=== PATIENT | female | born 1965 | race Caucasian/White ===

== ENCOUNTER → 2020-09-05 10:50 | Outpatient (CLI) | payer BC, SELFPAY ==
--- NOTE | ~2020-09-05 | MM_ITS ---
EXAMINATION: MM screening niurka BI w john HISTORY: Screening mammogram TECHNIQUE: Craniocaudal and mediolateral oblique 3-D tomosynthesis images were obtained and synthetic 2-D images were generated. CAD analysis was submitted and interpreted. COMPARISON: 03/21/2019 bilateral digital screening mammogram 01/04/2018 diagnostic left digital mammogram and limited left breast ultrasound 12/30/2017 bilateral digital screening mammogram BREAST PARENCHYMAL COMPOSITION: There are scattered areas of fibroglandular density. FINDINGS: 10 mm circumscribed mass situated anteriorly at the lower inner left breast; diagnostic left mammogra m is recommended, with ultrasound if required. Otherwise there no evidence of suspicious mass, calcification, or architectural distortion to suggest malignancy in either breast. There has been no other suspicious interval change. IMPRESSION: 1. 1 cm circumscribed mass at anterior aspect of lower inner left breast 2. Diagnostic left mammogram is recommended, with ultrasound if required BI-RADS Category 0: Incomplete: Needs additional imaging evaluation. Reviewed, dictated and finalized at location A. MBOAT PILOT
== END ==
PROVIDERS: Visit Provider Nurse Practitioner Obstetrics & Gynecology
DX: Z12.31 Encounter for screening mammogram for malignant neoplasm of breast (principal); R92.8 Other abnormal and inconclusive findings on diagnostic imaging of breast
CPT/HCPCS: 77063; 77067

== ENCOUNTER → 2020-09-30 07:44 | Outpatient (CLI) | payer BC, SELFPAY ==
--- NOTE | ~2020-09-30 | MMUS_ITS ---
EXAMINATION: MM diagnostic mammo unilat LT, US breast LT limited HISTORY: 10 mm circumscribed mass in anterior lower inner left breast reported on 09/05/2020 screenin g mammogram TECHNIQUE: Additional 3-D tomosynthesis images of the left breast were performed and synthetic 2-D im ages were generated. CAD analysis was submitted and interpreted. High resolution targeted left breast ultrasound was performed. COMPARISON: 09/05/2020 bilateral digital screening mammogram FINDINGS: MAMMOGRAPHIC FINDINGS: A superficial circumscribed low-density approximately 6 x 10 mm opacity is confirmed in the medial le ft subareolar area. ULTRASOUND: 9:00 subareolar 6 x 12 x 9 mm sonolucency with through transmission posterior enhancement, consistent with cyst. There is a nearby 2 x 2.5 mm cyst. No suspicious solid lesion or shadowing is evident. IMPRESSION: 1. Benign subareolar cysts at 9:00; no evidence of malignancy 2. Routine mammographic screening is recommended. BI-RADS Category 2: Benign finding(s). Reviewed, dictated and finalized at location A. ERY MENDER IMPRESSION: 1. Benign subareolar cysts at 9:00; no evidence of malignancy 2. Routine mammographic screening is recommended. BI-RADS Category 2: Benign finding(s).
== END ==
PROVIDERS: Visit Provider Nurse Practitioner Obstetrics & Gynecology
DX: R92.8 Other abnormal and inconclusive findings on diagnostic imaging of breast (principal)
CPT/HCPCS: 76642; 77065

== ENCOUNTER 2021-06-24 02:39 | Day surgery (SDC) | payer BC, SELFPAY ==
[2021-06-11 13:06] VITALS: BMI 27.4
--- NOTE | 2021-06-23 19:16 | PM.HPGS ---
History of Present Illness History of Present Illness Consent: Risks, benefits, and alternatives have been discussed and questions answered. Patient agrees to proceed with procedure. Chief complaint: neoplasm, hx of colon polyps Narrative: Amanda Marcos is a 55 year old female referred for colon cancer screening. She had a polyp removed about 5 years ago Review of Systems Review of Systems: All systems reviewed & are unremarkable except as noted in HPI and below PMFSH Surgical History Surgical History History of cholecystectomy Social History Social History Smoking status: Never smoker Alcohol intake: current Drinks per week: 1 Substance use: never Substance use type: does not use Living arrangements: alone Gender identity (if verbalized by the patient): Female Spiritual care concerns: No Meds Home Medications and Allergies Home Medications Medication Instructions Recorded Confirmed Type No Home Medications 06/11/21 06/24/21 History Allergies Allergy/AdvReac Type Severity Reaction Status Date / Time No Known Allergies Allergy Verified 06/24/21 09:08 Exam Resp: Auscultation: clear to auscultation bilaterally Cardio: Rate: regular rate Rhythm: regular rhythm GI: GI Palp: Yes Soft to palpation and No Tenderness to palpation present (GI) Assessment and Plan Assessment and plan (1) Colon cancer screening: Code(s): Z12.11 - Encounter for screening for malignant neoplasm of colon Status: Acute Assessment and Plan: Colonoscopy with possible biopsy or polypectomy or cautery or injection of substances.
--- NOTE | 2021-06-24 08:00 | P.PNAN_ITS ---
Anes - Initial Pre Proc Eval Procedure: Operation Date: 06/24/21 10:30 Proposed Procedures p Screening Colonoscopy - Grabiel Campos MD Date/Time: 06/24/21 08:00 Surgeon: Grabiel Campos MD Pre Op Diagnosis: neoplasm, hx of colon polyps Patient Data Age: 55 Gender: F Height: 1.7 m Weight: 79.5 kg Allergies Allergy/AdvReac Type Severity Reaction Status Date / Time No Known Allergies Allergy Verified 06/24/21 09:08 Home Medications Medication Instructions Recorded Confirmed Type No Home Medications 06/11/21 06/24/21 History Patient hx anesthesia problems: none Family hx anesthesia problems: none [facility] Surgical History Surgical History (Updated 06/24/21 @ 08:00 by Primo Gamboa DO) History of cholecystectomy Social History Social History Smoking status: Never smoker Alcohol intake: current Drinks per week: 1 Substance use: never Substance use type: does not use Living arrangements: alone Gender identity (if verbalized by the patient): Female Spiritual care concerns: No Anes - Eval Final PreProcedure Day of Procedure 06/24/21 08:00 Patient weight: overweight Heart: regular rate and rhythm Lungs: clear to auscultation and normal air movement Airway: Mallampati scale class II Neurological: alert and oriented Last oral intake: >/= 8 hours ASA classification: I Emergent: no Anesthetic plan: proceed Anesthesia type and monitoring: general GIVS and standard monitoring Informed Consent: The patient's anesthetic plan and its attendant risks and benefits were discussed with the patient/family/POA. Questions were solicited and answers provided to the satisfaction of the patient/family/POA.
[2021-06-24 09:09] VITALS: BP 137/87; PULSE 81; RESP 16; TEMP 36.4; O2SAT 100
[2021-06-24] MEDS: LACTATED RINGERS 1,000 ML 150 ML IV CONT (09:11)
[2021-06-24] MEDS: SIMETHICONE ORAL SUSPENSION 20 MG/0.3 ML 30 ML BOTTLE 0.6 ML IRRIGATION (09:52)
[2021-06-24 10:09] VITALS: BP 108/67; PULSE 68; RESP 18; O2SAT 100
[2021-06-24 10:19] VITALS: BP 118/77; PULSE 60; RESP 18; O2SAT 96
[2021-06-24 10:29] VITALS: BP 126/77; PULSE 58; RESP 18; O2SAT 100
== END 2021-06-24 10:38 | disposition home or self-care (01) ==
PROVIDERS: Visit Provider Internal Medicine Gastroenterology
PROC: 0DJD8ZZ Inspection of Lower Intestinal Tract, Via Natural or Artificial Opening Endoscopic (ICD-10-PCS; CPT 45378; principal; 2021-06-24 10:30)
DX: Z12.11 Encounter for screening for malignant neoplasm of colon (principal); D12.2 Benign neoplasm of ascending colon; K63.5 Polyp of colon
CPT/HCPCS: 45385; 88305; J2704; J7120

== ENCOUNTER → 2021-12-29 14:33 | Outpatient (CLI) | payer BC, SELFPAY ==
--- NOTE | ~2021-12-29 | MMUS_ITS ---
EXAMINATION: MM screening niurka BI w john, US breast LT limited HISTORY: Screening mammogram TECHNIQUE: Craniocaudal and mediolateral oblique 3-D tomosynthesis images were obtained and synthetic 2-D images were generated. CAD analysis was submitted and interpreted. COMPARISON: 09/30/2020 diagnostic left mammogram and left Limited breast ultrasound BREAST PARENCHYMAL COMPOSITION: There are scattered areas of fibroglandular density. BILATERAL SCREENING MAMMOGRAM FINDINGS: Interval considerably diminished size of previously reported 6 x 10 mm mammographic opacity in the medial inferior subareolar area since 09/30/2020. In the same l ocation there is an approximately 3.5 x 5.3 mm small density. Otherwise there is no evidence of suspicious mass, calcification, or architectural distortion to suggest malignancy i n either breast. There has been no other suspicious interval change. LIMITED LEFT BREAST ULTRASOUND FINDINGS: Subareolar area, 9:00: There is a circumscribed mildly irregular hypoechoic approximately 3.5 x 5 x 6 mm solid lesion with suggestion of a fatty hilus, possibly a small lymph node. There is no suspiciou s shadowing or suspicious internal vascularity. 6 month right mesenteric left mammogram and targeted subareolar left breast ultrasound examination is recommended. IMPRESSION: 1. Circumscribed hypoechoic 3.5 x 5 x 6 mm solid lesion with fatty hilus, possibly a small lymph node , in subareolar area at 9:00. 2. 6 month diagnostic left mammogram and targeted left breast ultrasound follow-up are recommended BI-RADS Category 3: Probably benign findings Reviewed, dictated and finalized at location A. IMPRESSION: 1. Circumscribed hypoechoic 3.5 x 5 x 6 mm solid lesion with fatty hilus, possi kim a small lymph node, in subareolar area at 9:00. 2. 6 month diagnostic left mammogram and targeted left breast ultrasound follow -up are recommended BI-RADS Category 3: Probably benign findings
== END ==
PROVIDERS: Visit Provider Nurse Practitioner Obstetrics & Gynecology
DX: Z12.31 Encounter for screening mammogram for malignant neoplasm of breast (principal); N60.02 Solitary cyst of left breast; R92.8 Other abnormal and inconclusive findings on diagnostic imaging of breast
CPT/HCPCS: 76642; 77063; 77067

== ENCOUNTER → 2022-01-26 13:12 | Outpatient (CLI) | payer BC, SELFPAY ==
--- NOTE | ~2022-01-26 | DEXA_ITS ---
Bone Density Report Name: ARLETTE OBRIEN Age: 56 Sex: Female Ethnicity: White Date of : 1965 Indication: postmenopausal; screening for osteoporosis; Referring Provider: Markel, Chiquita Messina Study: Bone densitometry was performed. Exam Date: January 26, 2022 Accession number: [id number] Bone Density: Region BMD T-score Z-score Classification AP Spine (L1-L4) 0.951 -0.9 0.3 Normal Femoral Neck (Left) 0.881 0.3 1.4 Normal Total Hip (Left) 1.009 0.5 1.3 Normal Femoral Neck (Right) 0.866 0.2 1.3 Normal Total Hip (Right) 0.996 0.4 1.2 Normal Total Hip Mean 1.003 0.5 1.3 Normal World Health Organization criteria for BMD impression classify patients as: Normal (T-score at or above -1.0), Osteopenia (T-score between -1.0 and -2.5), or Osteoporosis (T-score at or below -2.5). 10-year Fracture Risk: FRAX not reported because: All T-scores for Spine Total, Hip Total, Femoral Neck at or above -1.0 Clinical Information Provided by Patient: Patient maximum height was 67 Menopause Age: 50 Does not regularly consume dairy products Onset of menses at age 13 Number of children 0 Impression: The patient has normal bone mass. Discussion: BONE DENSITY IS ABOVE THE MINIMUM DESIRABLE LEVEL AT ALL SKELETAL SITES TESTED. This patient?s bone mineral density is above the minimum desirable level (T-score -1.0 or better) at all sites measured. The patient should follow a healthful lifestyle (good nutrition with adequate calcium and vitamin D, and appropriate weight-bearing exercise). Follow-Up: Consider repeating this study in 5 years or sooner if there is some new clinical indication. Reported by: BRIDGET on 01/26/2022 1:51:00 PM. Reviewed, dictated and finalized at location [facility]
== END ==
PROVIDERS: PCP Nurse Practitioner Obstetrics & Gynecology; Visit Provider Nurse Practitioner Obstetrics & Gynecology
DX: Z78.0 Asymptomatic menopausal state (principal)
CPT/HCPCS: 77080

== ENCOUNTER → 2022-07-05 08:07 | Outpatient (CLI) | payer BC, SELFPAY ==
--- NOTE | ~2022-07-05 | MMUS_ITS ---
EXAMINATION: MM diagnostic niurka LT w ojhn, US breast LT limited HISTORY: Six-month follow-up of abnormal mammogram TECHNIQUE: ML, MLO and CC 3-D tomosynthesis images of the left breast were performed and synthetic 2- D images were generated. CAD analysis was submitted and interpreted. High resolution targeted left 9: 00 breast ultrasound was performed. COMPARISON: 12/29/2021 bilateral screening mammogram and limited left breast ultrasound BREAST PARENCHYMAL COMPOSITION: There are scattered areas of fibroglandular density. FINDINGS: MAMMOGRAPHIC FINDINGS: No suspicious mass or architectural distortion, malignant calcification, skin thickening or retractio n or significant new or developing density is detected. ULTRASOUND: No suspicious mass or shadowing or other significant abnormality is identified in the 9:00 subareolar area. IMPRESSION: 1. No mammographic or sonographic evidence of malignancy 2. Routine mammographic screening is recommended. BI-RADS Category 1: Negative Reviewed, dictated and finalized at location A. IMPRESSION: 1. No mammographic or sonographic evidence of malignancy 2. Routine mammographic screening is recommended. BI-RADS Category 1: Negative
== END ==
PROVIDERS: PCP Nurse Practitioner Obstetrics & Gynecology; Visit Provider Nurse Practitioner Obstetrics & Gynecology
DX: R92.8 Other abnormal and inconclusive findings on diagnostic imaging of breast (principal)
CPT/HCPCS: 76642; 77061; 77065; G0279

== ENCOUNTER 2023-04-21 09:36 | Emergency (ER) | payer BC, SELFPAY ==
--- NOTE | ~2023-04-21 | XR_ITS ---
EXAMINATION: XR ankle LT min 3V DATE: 04/21/2023 10:05 INDICATION: Left ankle pain TECHNIQUE: Anteroposterior, lateral, mortise, and additional oblique view of the ankle were obtained. COMPARISON: None. FINDINGS: Bone alignment is normal. There is no fracture. There is mild soft tissue swelling of the d orsal foot. A plantar calcaneal enthesophyte is noted. Mild osteoarthritis is noted in the midfoot. IMPRESSION: 1. No acute osseous abnormality. Reviewed, dictated and finalized at location L.
--- NOTE | ~2023-04-21 | XR_ITS ---
EXAMINATION: XR foot LT min 3V DATE: 04/21/2023 10:06 INDICATION: Left foot pain TECHNIQUE: Dorsoplantar, lateral, and 2 oblique views of the left foot were obtained. COMPARISON: None. FINDINGS: There is dorsal soft tissue swelling of the foot overlying the metatarsals. There appear to be subtle areas of heterotopic ossification lateral to the base of the second metatarsal. Bone align ment is normal. There is mild osteoarthritis of multiple interphalangeal joints. IMPRESSION: 1. Possible fracture at the base of the second metatarsal. Consider further evaluation with CT. Reviewed, dictated and finalized at location L. IMPRESSION: 1. Possible fracture at the base of the second metatarsal. Consider further lulú luation with CT.
--- NOTE | ~2023-04-21 | CT_ITS ---
EXAMINATION: CT foot LT wo con DATE: 04/21/2023 10:48 INDICATION: Dorsal left foot pain, swelling and bruising post injury TECHNIQUE: High resolution computed tomography (CT) of the foot was performed without intravenous con trast. Additional sagittal and coronal reconstructions were performed. Automated exposure control and iterative reconstruction technique were employed. The dose-length product was 285.80 mGy-cm. COMPARISON: Radiograph dated 04/21/2023 FINDINGS: Negligible displacement of intra-articular fractures at the medial bases of the third and fourth meta tarsals. Additional tiny likely avulsion fracture fragments along the dorsal/medial cortices of the b ase of the third metatarsal and along the lateral margin of the base of the second metatarsal. Minima l impaction of a fracture at the distal margin of the medial cuneiform with one-2 mm depression of th e plantar/lateral aspect of the distal articular surface. No other fractures identified. Alignment re moe near-anatomic. Minimal polyarticular osteoarthritis. There is subarticular cystic change at the head of the second metatarsal which could represent sequela of chronic osteonecrosis. Soft tissues s welling over the dorsum of the mid and forefoot. IMPRESSION: 1. Non to minimally displaced fractures at the base of the second-fourth metatarsals and at the media l cuneiform. Reviewed, dictated and finalized at location A. IMPRESSION: 1. Non to minimally displaced fractures at the base of the second-fourth metata rsals and at the medial cuneiform.
[2023-04-21 09:36] VITALS: BP 141/76; PULSE 102; RESP 18; TEMP 37.3; O2SAT 98
[2023-04-21] MEDS: IBUPROFEN 600 MG TABLET PO (09:56)
--- NOTE | 2023-04-21 11:07 | ED.LOWEXIN ---
HPI - Extremity Injury (Lower) General Chief Complaint: Extremity Injury, Lower Stated Complaint: left foot injury; pain Time Seen by Provider: 04/21/23 09:44 Source: patient Mode of arrival: ambulatory Limitations: no limitations History of Present Illness HPI Narrative: this is 57-year-old female that presents with left foot pain with weight-bearing and swelling has some limited range of motion secondary to pain and swelling this occurred yesterday after she was on a treadmill and inadvertently missed staffed on to her left anterior foot causing pain and discomfort. MD complaint: foot injury Injury: Right: foot ( Painful and swelling) Type of Injury: blunt Place: other Severity: mild Severity scale (1-10): 2 Relieving factors: cold therapy Exacerbating factors: weight bearing Related Data Home Medications Medication Instructions Recorded Confirmed No Home Medications 06/11/21 04/21/23 Allergies Allergy/AdvReac Type Severity Reaction Status Date / Time No Known Allergies Allergy Verified 04/21/23 09:49 Review of Systems Review of Systems: All systems reviewed & are unremarkable except as noted in HPI and below PMFSH Past Medical History Medical History Patient denies medical problems Surgical History Surgical History History of cholecystectomy Social History Social History Smoking status: Never smoker Alcohol intake: current Drinks per week: 1 Substance use: never Substance use type: does not use Living arrangements: alone Gender identity (if verbalized by the patient): Female Spiritual care concerns: No Exam Const: General: healthy appearing Nutritional Appearance: well nourished Orientation/consciousness: patient oriented x3 Limitations: no limitations Resp: Effort & Inspection: normal respiratory effort Auscultation: clear to auscultation bilaterally GI: GI Palp: Yes Soft to palpation Urinary Catheter: Urinary Catheter: patent and draining Skin: General skin exam: normal color Rashes: no rashes Neuro: General: patient oriented x3 Extrem: General: edema Other: anterior left foot tenderness with palpation Psych: Mental Status: mental status grossly normal Affect: normal affect Course Course Emergency Course: x-ray performed and reviewed by our radiologist advised CT scan, CT scan performed shows fracture at the base of the left 2nd metacarpal, will place patient in a postop shoe and advised patient to follow with primary and can take Tylenol or Motrin for inflammation and discomfort. Vital Signs Vital signs: Vital Signs Temperature 37.3 C 04/21/23 09:36 Pulse Rate 102 H 04/21/23 09:36 Respiratory Rate 18 04/21/23 09:36 Blood Pressure 141/76 H 04/21/23 09:36 Pulse Oximetry 98 04/21/23 09:36 Oxygen Delivery Room Air 04/21/23 09:36 Temperature 37.3 C 04/21/23 09:36 Pulse Rate 102 H 04/21/23 09:36 Respiratory Rate 18 04/21/23 09:36 Blood Pressure 141/76 H 04/21/23 09:36 Pulse Oximetry 98 04/21/23 09:36 Oxygen Delivery Room Air 04/21/23 09:36 Critical Care Time Critical Care Time Critical Care Time: No Discharge Plan Discharge Clinical Impression: Foot fracture, left Qualifiers: Encounter type: initial encounter Fracture type: closed Qualified Code(s): S92.902A - Unspecified fracture of left foot, initial encounter for closed fracture Patient Disposition: Home, Self-Care Condition: Stable Instructions: Antibiotic Form, Foot Fracture in Adults (ED) Additional Instructions: advised patient to take Tylenol or Motrin and follow with primary for further evaluation. Prescriptions: No Action No Home Medications Follow-up/Referrals: Markel,Chiquita Messina NP [Primary Care Provider] - Time of Disposition
[2023-04-21 11:23] VITALS: BP 120/79; PULSE 81; RESP 20; TEMP 36.7; O2SAT 99
== END 2023-04-21 11:27 | disposition home or self-care (01) ==
PROVIDERS: Emergency Provider Emergency Medicine; PCP Nurse Practitioner Obstetrics & Gynecology
DX: S92.322A Displaced fracture of second metatarsal bone, left foot, initial encounter for closed fracture (principal); S92.332A Displaced fracture of third metatarsal bone, left foot, initial encounter for closed fracture; S92.342A Displaced fracture of fourth metatarsal bone, left foot, initial encounter for closed fracture; X50.0XXA Overexertion from strenuous movement or load, initial encounter
CPT/HCPCS: 73610; 73630; 73700; 99284; A9270

== ENCOUNTER → 2023-07-18 16:01 | Outpatient (CLI) | payer BC, SELFPAY ==
--- NOTE | ~2023-07-18 | MM_ITS ---
EXAMINATION: MM screening niurka BI w john HISTORY: Screening mammogram TECHNIQUE: Craniocaudal and mediolateral oblique 3-D tomosynthesis images were obtained and synthetic 2-D images were generated. CAD analysis was submitted and interpreted. COMPARISON: 07/05/2022 diagnostic left mammogram and limited left breast ultrasound examination 12/29/2021 bilateral screening mammogram and limited left breast ultrasound 09/30/2020 diagnostic left mammogram and limited left breast ultrasound 09/05/2020 bilateral screening mammogram BREAST PARENCHYMAL COMPOSITION: There are scattered areas of fibroglandular density. FINDINGS: There is no evidence of suspicious mass, calcification, or architectural distortion to sugg est malignancy in either breast. There has been no suspicious interval change. IMPRESSION: 1. No mammographic evidence of malignancy. 2. Recommend routine screening mammography in one year. BI-RADS Category 1: Negative Reviewed, dictated and finalized at location A.
== END ==
PROVIDERS: PCP Nurse Practitioner Obstetrics & Gynecology; Visit Provider Nurse Practitioner Obstetrics & Gynecology
DX: Z12.31 Encounter for screening mammogram for malignant neoplasm of breast (principal)
CPT/HCPCS: 77063; 77067

== ENCOUNTER 2024-11-01 12:02 | Outpatient (CLI) | payer OTHER, SELFPAY ==
--- NOTE | ~2024-11-01 | MM_ITS ---
EXAMINATION: MM screening [facility] BI w john HISTORY: Screening TECHNIQUE: Craniocaudal and mediolateral oblique 3-D tomosynthesis images were obtained and synthetic 2-D images were generated. CAD analysis was submitted and interpreted. COMPARISON: Comparison to multiple prior studies sequentially, with oldest reviewed study dated 03/21. BREAST PARENCHYMAL COMPOSITION: Not dense: There are scattered areas of fibroglandular density. FINDINGS: There is no evidence of suspicious mass, calcification, or architectural distortion to sugg est malignancy in either breast. There has been no suspicious interval change. IMPRESSION: 1. No mammographic evidence of malignancy. 2. Recommend routine screening mammography in one year. BI-RADS Category 1: Negative Reviewed, dictated and finalized at location A. 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
== END 2024-11-01 12:03 | disposition home or self-care (01) ==
PROVIDERS: PCP Obstetrics & Gynecology; Visit Provider Obstetrics & Gynecology
DX: Z12.31 Encounter for screening mammogram for malignant neoplasm of breast (principal)
CPT/HCPCS: 77063; 77067